=== PATIENT | female | born 2000 | race Hispanic/Latino ===

== ENCOUNTER 2023-03-12 10:31 | Emergency (ER) | payer OTHER ==
--- OUTSIDE RECORDS SUMMARY | 2023-03-12 10:38 | XMS REPORT | Continuity of Care Document ---
:2000 Author Organization [facility] t Address [address] [facility] [address] [place] [address] Care Team Providers Name Role Phone JOSÉ LUIS GONZALEZ Primary Care Physician Unavailable JOSÉ LUIS GONZALEZ Attending Clinician Unavailable José Luis Gonzalez MD Attending Clinician Doctor Unassigned, [place] Attending Clinician Unavailable Chino Hill MD Attending Clinician Deshawn Sherman CRNA Attending Clinician Only, Adc Test Attending Clinician Unavailable Chapo Roman MD Attending Clinician 2, Adc Lab Attending Clinician Unavailable Ultrasound, Adc Mfm Attending Clinician Unavailable Azalea Figueroa MD Attending Clinician Merissa Perez PA-C Attending Clinician MERISSA PEREZ Attending Clinician Unavailable Vern PAZ, Ervin Hernandes Attending Clinician Melvin Hurst DO Attending Clinician Ultrasound, Ang-Mfm Attending Clinician Unavailable Naomi Coulter MD, [place] Attending Clinician [phone] Pob, Adc Lab Main Attending Clinician Unavailable , Adc Lab Attending Clinician Unavailable Mahnaz Light Attending Clinician Fay Krishna DO Attending Clinician Lab, Adc Fam Pob I Attending Clinician Unavailable Naida Lauren Attending Clinician NAIDA ENGLE Attending Clinician Unavailable JOSÉ LUIS GONZALEZ Admitting Clinician Unavailable José Luis Gonzalez MD Admitting Clinician Payers Payer Name Policy Type Policy Number Effective Date Expiration Date [facility] [id number] 2019 00:00:00 Problems Condition Condition Condition Status Onset Resolution Last Treating Co mments Source Name Details Category Date Date Treatment Clinician Date Encounter Encounter Disease Active Uni vers for well for well 2-07 ity of [place] exam [place] 00 Medical routine routine Branch gynecologi gynecologi shahriar exam shahriar exam Morbid Morbid Disease Active Univers obesity obesity 6-02 [place] of [place] mass index mass index 00 Me dical of 50 or of 50 or Branch higher higher Mild Mild Disease Active 2019-04 Univers intermitte intermitte 1-04 [place] y of nt asthma nt asthma [place] without without 00 Medical complicati complicati Br anch on on History of History of Disease Active 2019-04 Last U nivlynn 2019 2018 1-04 Assessmen ity of coronaviru coronaviru 00:00: t & Plan: [place] s disease s disease 00 Negar dias (COVID-19) (COVID-19) g of this Branch note might be different from the original. Positive on 11/29/2019 Allergies, Adverse Reactions, Alerts Allergy Allergy Status Severity Reaction(s) Onset Inactive Treating Comm ents Source Name Type Date Date Clinician NO KNOWN Drug Active Univers ALLERGIE Class ity of S [facility] Social History Social Habit Start Date Stop Date Quantity Comments Source ASSERTION [facility] Sexual [facility] Exposure to 2021 2021-05-25 Not sure [facility]-CoV-2 (event) 00:00:00 14:55:00 [facility] History of Social 2021-05-25 2021-05-25 Univers ity of function 00:00:00 00:00:00 [facility] Alcohol Comment 2021-05-25 2021-05-25 Social Universit y of 00:00:00 00:00:00 [facility] Alcohol intake 2020-03-19 2020-03-19 Ex-drinker [facility] 00:00:00 00:00:00 (finding) [facility] History SDOH 2020-02-14 2020-02-14 99 University o f Alcohol Frequency 00:00:00 00:00:00 [facility] edical Branch History SDOH 2020-02-14 2020-02-14 99 University o f Alcohol Std Drinks 00:00:00 00:00:00 [facility] History SDUT 2020-02-14 2020-02-14 99 University o f Alcohol Binge 00:00:00 00:00:00 [facility] al [place] Tobacco use and 2019-03-05 2019-03-05 Smokeless Universit y of exposure 00:00:00 00:00:00 [facility] [place] Sex Assigned At [birth year] Universit y of 00:00:00 00:00:00 [facility] Smoking Status Start Date Stop Date Source Never smoked tobacco [facility] Medications Ordered Filled Start Stop Current Ordering Indication Dosage Frequency Signature Comments Components Source Medication Medication Date Date Medication? Clinician (SIG) Name Name multivit, Yes Take by Uni vers x,calcium,i 2-07 mouth. ity of ,mins 15:26: [place] (MULTIVITAM 03 Medical IN AND Branch MINERAL ORAL) multivit, Yes Take by Uni vers x,calcium,i 2-07 mouth. ity of ,mins 15:26: [place] (MULTIVITAM 03 Medical IN AND Branch MINERAL ORAL) norelgestro Yes [id number] 1{patch Apply 1 Univers min-ethinyl 2-07 } Patch to ity of estradiol 00:00: skin [place] 150-35 00 weekly. Medical mcg/24 hr Branch patch norelgestro Yes [id number] 1{patch Apply 1 Univers min-ethinyl 2-07 } Patch to ity of estradiol 00:00: skin [place] 150-35 00 weekly. Medical mcg/24 hr Branch patch norgestimat 2021- No [id number] 1{tbl} Take 1 Univers e-ethinyl 6-23 02-07 tablet by ity of estradioL 00:00: 00:00 mouth [place] 0.25-35 00 :00 daily. Medical mg-mcg per Branch tablet norgestimat 2021- No [id number] 1{tbl} Take 1 Univers e-ethinyl 6-23 02-07 tablet by ity of estradioL 00:00: 00:00 mouth [place] 0.25-35 00 :00 daily. Medical mg-mcg per Branch tablet 2021- No [id number] 1{tbl} Take 1 Univers vitamin 6-03 02-07 tablet by ity of w/FA tablet 00:00: 00:[place] 00 :00 daily. Medical Branch ferrous 2021- No [id number] 325mg Take 1 Un dada sulfate 325 -06 17-07 tablet by it y of mg (65 mg 00:00: 00:00 mouth 2 [place] iron) 00 :00 (two) Medical tablet times Branch daily. ibuprofen 2021- No [id number] 600mg Take 1 Univers 600 mg 6- 02-07 tablet by ity of tablet 00:00: 00:00 mouth [place] 00 :00 every 6 Medical (six) Branch hours as needed (Pain). Take with food or milk. 2021- No [id number] 1{tbl} Take 1 Univers vitamin 6-03 02-07 tablet by ity of w/FA tablet 00:00: 00:[place] :00 daily. Medical Branch ferrous 2021- No [id number] 325mg Take 1 Un dada sulfate 325 -06 17-07 tablet by it y of mg (65 mg 00:00: 00:00 mouth 2 [place] iron) 00 :00 (two) Medical tablet times Branch daily. ibuprofen 2021- No [id number] 600mg Take 1 Univers 600 mg 09-18 tablet by ity of tablet 00:00: 00:00 mouth [place] 00 :00 every 6 Medical (six) Branch hours as needed (Pain). Take with food or milk. PNV 2019-04- No [id number] Take 1 Univers 102-iron-fo 04-21 TAB-CAP/M2 i ty of late-dha 00:00: 00:00 [place] (VITAFOL FE 00 :00 daily. Medica l PLUS) 90 mg Branch iron- 1 mg-200 mg Cap cetirizine 2018-04- No Univer s 10 mg 04-23 ity of tablet 00:00: 00:00 [place] 00 :00 Medical Branch cetirizine 2018-04- No Univer s 10 mg 04-23 ity of tablet 00:00: 00:00 [place] 00 :00 Medical Branch cetirizine 2018-04- No Univer s 10 mg 04-23 ity of tablet 00:00: 00:00 [place] 00 :00 [facility] Immunizations Ordered Immunization Filled Date Status Comments Sour ce Name Immunization Name Influenza Virus 2021-05-25 Completed Universit y of Vaccine Quad IM, 00:00:00 [facility] dical Preserv and ABX Free Bran ch 6 MO-64 YRS Influenza Virus 2021-05-25 Completed Universit y of Vaccine Quad IM, 00:00:00 [facility] dical Preserv and ABX Free Bran ch 6 MO-64 YRS TDAP 2020-07-09 Completed [facility] 00:00:00 [facility] TDAP 2020-07-09 Completed [facility] 00:00:00 [facility] Influenza Virus 2020-02-20 Completed Universit y of Vaccine Quad .5 mL 00:00:00 [place] [facility] IM 6+ MO Branch Influenza Virus 2020-02-20 Completed Universit y of Vaccine Quad .5 mL 00:00:00 [facility] IM 6+ MO Branch Influenza Virus Unknown Completed Universit y of Vaccine Quad .5 mL [facility] IM 6+ MO Branch (FLUZONE/FLULAVAL/FL UARIX) DTaP, Unspecified Unknown Completed Univers ity of Formulation [facility] DTaP, Unspecified Unknown Completed Univers ity of Formulation [facility] DTaP, Unspecified Unknown Completed Univers ity of Formulation [facility] DTaP, Unspecified Unknown Completed Univers ity of Formulation [facility] DTaP, Unspecified Unknown Completed Univers ity of Formulation [facility] Influenza Virus Unknown Completed Universit y of Vaccine - Whole [facility] Influenza Virus Unknown Completed Universit y of Vaccine - Whole [facility] HEPATITIS A Unknown Completed [facility] HEPATITIS A Unknown Completed [facility] Hep B, Adol or Pedi Unknown Completed Unive rsity of Dosage [facility] Hep B, Adol or Pedi Unknown Completed Unive rsity of Dosage [facility] Hep B, Adol or Pedi Unknown Completed Unive rsity of Dosage [facility] HIB 4 Dose Schedule Unknown Completed [facility] 4 Dose Schedule [facility] Dose [facility] Unknown [facility] 4 Dose Schedule Unknown [facility] HPV Unknown Completed [facility] HPV Unknown Completed [facility] HPV Unknown Completed [facility] Meningococcal Unknown Completed [facility] (groups A, C, Y and Branc h W-135) conjugate vaccine (MCV4P) MMR Unknown Completed [facility] MMR Unknown Completed [facility] Pneumococcal 7 Unknown Completed [facility] Conjugate, PCV7 [facility] (Prevnar7) [place] Pneumococcal 7 Unknown Completed [facility] Conjugate, PCV7 [facility] (Prevnar7) [place] IPV Unknown Completed [facility] IPV Unknown Completed [facility] IPV Unknown Completed [facility] IPV Unknown Completed [facility] TDAP Unknown Completed [facility] Varicella Unknown Completed [facility] (varivax)(chicken [place] M edical pox) Branch Varicella Unknown Completed [facility] (varivax)(chicken [place] M edical pox) Branch Influenza Virus Unknown Completed Universit y of Vaccine Quad .5 mL [facility] [place] [facility] 6+ MO Branch (FLUZONE/FLULAVAL/FL UARIX) DTaP, Unspecified Unknown Completed Univers ity of Formulation [facility] DTaP, Unspecified Unknown Completed Univers ity of Formulation [facility] DTaP, Unspecified Unknown Completed Univers ity of Formulation [facility] DTaP, Unspecified Unknown Completed Univers ity of Formulation [facility] DTaP, Unspecified Unknown Completed Univers ity of Formulation [facility] Influenza Virus Unknown Completed Universit y of Vaccine - Whole [facility] Branch Influenza Virus Unknown Completed Universit y of Vaccine - Whole [facility] HEPATITIS A Unknown Completed [facility] HEPATITIS A Unknown Completed [facility] Hep B, Adol or Pedi Unknown Completed Unive rsity of Dosage [facility] Hep B, Adol or Pedi Unknown Completed Unive rsity of Dosage [facility] Hep B, Adol or Pedi Unknown Completed Unive rsity of Dosage [facility] HIB 4 Dose Schedule Unknown Com[facility] 4 Dose Schedule Unknown Com[facility] HIB 4 Dose Schedule Unknown Com[facility] HIB 4 Dose Schedule Unknown Completed Unive [facility] HPV Unknown Completed [facility] HPV Unknown Completed [facility] HPV Unknown Completed [facility] Meningococcal Unknown Completed [facility] (groups A, C, Y and Branc h W-135) conjugate vaccine (MCV4P) MMR Unknown Completed [facility] MMR Unknown Completed [facility] Pneumococcal 7 Unknown Completed [facility] Conjugate, PCV7 [facility] (Prevnar7) Branch Pneumococcal 7 Unknown Completed [facility] Conjugate, PCV7 [facility] (Prevnar7) Branch IPV Unknown Completed [facility] IPV Unknown Completed [facility] IPV Unknown Completed [facility] IPV Unknown Completed [facility] TDAP Unknown Completed [facility] Varicella Unknown Completed University (varivax)(chicken [place] M edical pox) Branch Varicella Unknown Completed University (varivax)(chicken [place] M edical pox) Branch Influenza Virus Unknown Completed Universit y of Vaccine Quad .5 mL [facility] [place] [facility] 6+ MO Branch (FLUZONE/FLULAVAL/FL UARIX) DTaP, Unspecified Unknown Completed Univers ity of Formulation [facility] DTaP, Unspecified Unknown Completed Univers ity of Formulation [facility] DTaP, Unspecified Unknown Completed Univers ity of Formulation [facility] DTaP, Unspecified Unknown Completed Univers ity of Formulation [facility] DTaP, Unspecified Unknown Completed Univers ity of Formulation [facility] Influenza Virus Unknown Completed Universit y of Vaccine - Whole [facility] Influenza Virus Unknown Completed Universit y of Vaccine - Whole [facility] HEPATITIS A Unknown Completed [facility] HEPATITIS A Unknown Completed [facility] Hep B, Adol or Pedi Unknown Completed Unive rsity of Dosage [facility] Hep B, Adol or Pedi Unknown Completed Unive rsity of Dosage [facility] Hep B, Adol or Pedi Unknown Completed Unive rsity of Dosage [facility] HIB 4 Dose Schedule Unknown Com[facility]IB 4 Dose Schedule Unknown Completed [facility] HIB 4 Dose Schedule Unknown Com[facility] HIB 4 Dose Schedule Unknown Completed [facility] HPV Unknown Completed [facility] HPV Unknown Completed [facility] HPV Unknown Completed [facility] Meningococcal Unknown Completed [facility] (groups A, C, Y and Branc h W-135) conjugate vaccine (MCV4P) MMR Unknown Completed [facility] MMR Unknown Completed [facility] Pneumococcal 7 Unknown Completed [facility] Conjugate, PCV7 [facility] (Prevnar7) Branch Pneumococcal 7 Unknown Completed [facility] Conjugate, PCV7 [facility] (Prevnar7) [place] IPV Unknown Completed [facility] IPV Unknown Completed [facility] IPV Unknown Completed [facility] IPV Unknown Completed [facility] TDAP Unknown Completed [facility] Varicella Unknown Completed [facility] (varivax)(chicken [place] M edical pox) Branch Varicella Unknown Completed [facility] (varivax)(chicken [place] M edical pox) [place] Vital Signs Vital Name Observation Time Observation Value Comments Source Systolic blood 2021-05-25 21:13:00 113 mm[Hg] Univer sity of pressure [facility] Diastolic blood 2021-05-25 21:13:00 73 [facility]Hg[facility] 2021-05-25 21:13:00 84 /min [facility] Body temperature 2021-05-25 21:13:00 36.67 [facility] Respiratory rate 2021-05-25 21:13:00 18 /min [facility] Body height 2021-05-25 21:13:00 160 cm [facility] Body weight 2021-05-25 21:13:00 149.233 kg [facility] BMI 2021-05-25 21:13:00 58.28 kg/m2 [facility] Procedures Procedure Date / Time Performed Performing Clinician Sourc e FLU VACC (), 2021-05-25 22:06:03 José Luis Gonzalez [facility] 2-64 YRS, .5ML, IM, Medical Bran ch QUAD (FLUCELVAX) Encounters Start End Encounter Admission Attending Care Care Encounter Source Date/Time Date/Time Type Type Clinicians Facility Department ID 2021-02-15 [facility] [id number] Univers 21:27:29 ity [facility] 2021-02-14 Emergency [facility] [id number] Univers 08:01:03 ity [facility] 2021-02-13 Emergency [facility] [id number] [facility]:28[facility] 2023-01-05 Outpatient JOSÉ LUIS GAMA [facility] [id number] Univers 09:30:00 [facility]30[facility]22-07-22 2022-07-22 Outpatient JOSÉ LUIS GAMA [facility] [id number] Univers 10:30:00 10:30:[facility] 2022-05-25 2022-05-25 Outpatient JOSÉ LUIS GAMA [facility] [id number] Univers 13:30:00 [facility]:30:[facility] 2021-05-25 2021-05-25 Outpatient JOSÉ LUIS GAMA [facility] [id number] Univers 15:00:00 16:13:58 [facility] 2021-05-25 2021-05-25 Office José Luis Gonzalez [facility] [id number] Univers 15:00:00 16:13:58 Visit Efrain ZENG [id number] i ty [facility] [id number] Christy sage PROFESSIO [phone] Mt dical [address] 2021-05-25 2021-05-25 Outpatient R [facility] [id number] Univers 15:00:00 15:00:00 ity of [facility] 2021-05-25 2021-05-25 Orders Doctor GABRIELLA [id number] Univers 00:00:00 00:00:00 Only Unassigned, NELLIE [id number] ity of [place] [facility] [id number] Todd as [phone] [address] 2021-04-09 2021-04-09 Outpatient R [facility] [id number] Univers 10:30:00 10:30:00 ity of [facility] 2020-10-08 2020-10-08 [facility] [id number] Univers 10:56:32 12:03:44 Cam Acme [id number] ity of [id number] [facility] [phone] Mt dical [address] 2020-10-08 2020-10-08 Outpatient R [facility] [id number] Univers 11:00:00 11:00:00 ity of [facility] 2020-10-08 2020-10-08 Orders Doctor GABRIELLA [id number] Univers 00:00:00 00:00:00 Only Unassigned, NELLIE [id number] ity of [place] [facility] [id number] [place] as [phone] [address] 2020-09-17 2020-09-19 Hospital Carlos [facility] [id number] Univers 10:57:00 11:35:00 Encounter Cam Karri [id number] ity of [place] [id number] [place] [phone] [facility] 083 [place] 2020-09-17 2020-09-18 [facility] [id number] Univers 22:42:00 07:16:00 Event Chino Sage [place] [id number] ity of [place] [id number] [place] [phone] [facility] 083 Branch 2020-09-17 2020-09-[address] [facility] [id number] Univers 16:19:30 16:19:30 Event Deshawn [place] [id number] i ty of [place] [id number] [place] [phone] [facility] 083 Branch 2020-09-12 2020-09-12 Laboratory Only, Adc Test [facility] 1.2.840. [id number] Univers 11:48:44 12:03:44 Only Abel Chapo [place] [id number] ity of [place] [id number] [place] [phone] [facility] 353 [place] 2020-09-12 2020-09-12 Outpatient R [facility] [id number] Univers 11:30:00 11:30:00 ity of [facility] 2020-09-10 2020-09-10 Outpatient R JOSÉ LUIS GONZALEZ [facility] [id number] Univers 11:30:00 11:30:00 ity of [facility] 2020-09-10 2020-09-10 Routine José Luis Gonzalez [facility] [id number] Univers 10:39:24 11:19:00 Efrain Zeng [id number] ity of [place] [id number] [phone] Mt dical nal [address] [facility] 2020-09-10 2020-09-10 Stereo Equipment Installer 2, Adc Lab [facility] 1.2.840.114 [id number] Univers 10:31:24 10:46:24 Visit José Luis Gonzalez [id number] ity of [place] [id number] [place] Profess[place] [phone] Mt dical nal [address] [facility] 2020-09-05 2020-09-05 Stereo Equipment Installer Ultrasound, Adc [facility] 1.2 .840.114 [id number] Univers 09:38:15 10:07:36 Visit FigueroaAzalea Karri [id number] ity of [place] [id number] [place] Profess[place] [phone] [address] 2020-09-05 2020-09-05 Outpatient R [facility] [id number] Univers 09:30:00 09:30:00 ity of [facility] 2020-09-04 2020-09-04 Routine José Luis Gonzalez [facility] 1.2.840.114 [id number] Univers 11:34:51 12:23:19 Merissa Perez [id number] ity of [place] [id number] [place] Profess[place] [phone] [address] 2020-09-04 2020-09-04 Outpatient R ANA [facility] [id number] Univers 11:30:00 11:30:00 MERISSA herrera [facility] 2020-09-04 2020-09-04 Orders Doctor GABRIELLA 1.2.840.114 [id number] Univers 00:00:00 00:00:00 Only Unassigned, NELLIE [id number] ity of [place] [facility] [id number] [place] as [phone] [address] 2020-08-26 2020-08-26 Telephone Carlos Jsoé Luis [facility] 1.2.840.114 [id number] Univers 00:00:00 00:00:00 Efrain Zeng [id number] i ty of [place] [id number] [place] Profess[place] [phone] [address] 2020-08-21 2020-08-21 Outpatient R ANA [facility] [id number] Univers 11:30:00 11:30:00 MERISSA herrera [facility] 2020-08-21 2020-08-21 Routine Ana [facility] [id number] Univers 07:49:22 08:04:22 Merissa Zeng [id number] ity of [place] [id number] [place] Profess[place] [phone] [address] 2020-08-21 2020-08-21 Outpatient R ANA [facility] [id number] Univers 08:00:00 08:00:00 [facility] 2020-08-20 2020-08-20 Outpatient R ANA [facility] [id number] Univers 11:30:00 11:30:00 [facility] 2020-08-20 2020-08-20 Outpatient R ANA [facility] [id number] Univers 10:45:00 10:45:00 [facility] 2020-08-05 2020-08-05 Routine José Luis Gonzalez [facility] [id number] Univers 13:19:31 14:19:54 Efrain Zeng [id number] ity of Visit [place] [id number] [place] Profess[place] [phone] [address] 2020-08-05 2020-08-05 Outpatient R JOSÉ LUIS GONZALEZ [facility] [id number] Univers 13:30:00 13:30:00 ity [facility] 2020-08-04 2020-08-04 Outpatient R JOSÉ LUIS GONZALEZ [facility] [id number] Univers 11:15:00 11:15:00 ity [facility] 2020-08-01 2020-08-01 Stereo Equipment Installer Ultrasound, [facility] 1.2 .840.114 [id number] Univers 08:09:44 08:39:44 Visit Ervin Porras 350.1.13.10 [place] [phone] [address] 2020-08-01 2020-08-01 Outpatient P [facility] [id number] Univers 08:00:00 08:00:00 ity [facility] 2020-07-23 2020-07-23 Routine Ana [facility] 1.2.242.844 [id number] Univers 10:00:37 10:32:27 Merissa Karri 350.1.13.10 it[place] [phone] Mt dical nal [address] [facility] 2020-07-23 2020-07-23 Outpatient R ANA [facility] [id number] Univers 09:45:00 09:45:00 MERISSA ity of [facility] 2020-07-09 2020-07-09 Routine José Luis Gonzalez [facility] 1.2.721.674 [id number] Univers 10:57:42 12:10:47 Efrain Zeng 350.1.13.10 it[place] [phone] Mt dical nal [address] [facility] 2020-07-09 2020-07-09 Stereo Equipment Installer 2, Adc Lab [facility] 1.2.840.114 [id number] Univers 09:48:23 10:03:23 Visit José Luis Gonzalez 350.1.13.10 [place] [phone] Mt dical nal [address] [facility] 2020-07-09 2020-07-09 Outpatient R JOSÉ LUIS GONZALEZ [facility] [id number] Univers 09:45:00 09:45:00 ity of [facility] 2020-07-09 2020-07-09 Case Ana [facility] 1.2.367.460 [id number] Univers 00:00:00 00:00:00 Management Merissa Zeng 350.1.13.10 [place] [phone] Mt dical nal [address] [facility] 2020-07-08 2020-07-08 Patient Aris [facility] 1.2.840.114 [id number] Univers 00:00:00 00:00:00 Outreach Melvin PRIMARY 350.1.13.10 i ty of [facility] [place] [phone] Mt dical [address] 2020-06-13 2020-06-13 Stereo Equipment Installer Ultrasound, [facility] 1.2 .840.114 [id number] Univers 14:49:25 15:19:25 Visit CarlosJosé Luis Efrain Zeng 350.1.13.10 ity of [place] 4.2.7.2.686 [place] Professio [phone] [address] 2020-06-13 2020-06-13 Outpatient P [facility] [id number] Univers 15:00:00 15:00:00 ity [facility] 2020-06-11 2020-06-11 Outpatient R ANA, [facility] [id number] Univers 11:00:00 11:00:00 [facility]-11 2020-06-11 [facility] 1.2.333.631 [id number] 10:30:58 10:45:58 Merissa Zeng 350.1.13.10 Visit Andrzej 4.2.7.2.686 Professio [phone] [address] 2020-06-11 2020-06-11 Routine Ana [facility] 1.2.859.200 [id number] Univers 10:30:58 10:45:58 Merissa Zeng 350.1.13.10 ity of [place] [phone] [address] 2020-06-11 2020-06-11 Patient Doctor [facility] 1.2.840.114 [id number] Univers 00:00:00 00:00:00 Secure Msg Unassigned, KARRI 350.1.13.10 ity of [place] [phone] [address] 2020-05-16 2020-05-16 Stereo Equipment Installer Ultrasound, [facility] 1.2.840.114 [id number] 13:06:23 14:06:23 [facility] NETWORK SYSTEMS ADMINISTRATOR 350.1.13.10 [facility] 4.2.7.2.686 MATERNAL [phone] & CHILD [address] [place] [address] 2020-05-16 2020-05-16 Stereo Equipment Installer Felipa, Lupe [facility] 1.2 .840.114 [id number] Univers 13:06:23 14:06:23 Visit Lacy Chand NETWORK SYSTEMS ADMINISTRATOR 350.1. 13.10 ity of REGIONAL 4.2.7.2.686 [place] as MATERNAL [phone] Med ical & CHILD [address] [place] [address] 2020-05-16 2020-05-16 Outpatient P [facility] [id number] Univers 13:00:00 13:00:00 ity of [facility] 2020-05-14 2020-05-14 Routine José Luis Gonzalez [facility] 1.2.928.096 [id number] 10:39:22 11:46:13 Cam [place] 350.1.13.10 Visit Andrzej 4.2.7.2.686 Professio [phone] [address] 2020-05-14 2020-05-14 Routine José Luis Gonzalez [facility] 1.2.281.444 [id number] Univers 10:39:22 11:46:13 Cam [place] 350.1.13.10 ity of [place] [phone] Mt dical [address] 2020-05-14 2020-05-14 Outpatient R JOSÉ LUIS GONZALEZ [facility] [id number] Univers 11:00:00 11:00:00 ity of [facility] 2020-04-21 2020-04-21 Patient Doctor [facility] 1.2.840.114 [id number] Univers 00:00:00 00:00:00 Secure Msg Unassigned, [place] 350.1.13.10 ity of [place] [phone] Mt dical [address] 2020-04-16 2020-04-16 Stereo Equipment Installer Heron Melchor [facility] 1.2.840.114 [id number] 12:27:50 12:42:50 Visit Lab Main [place] 350.1.13.10 [place] 4.2.7.2.686 Professio [phone] [address] 2020-04-16 2020-04-16 Stereo Equipment Installer Heron Melchor Lab Main [facility] 1.2.8 40.114 [id number] Univers 12:27:50 12:42:50 Visit Merissa Perez 350.1.13.10 it[place] of [place] [phone] Mt dic[address] 2020-04-16 2020-04-16 [facility]ine [facility] 1.2.721.939 [id number] Univers 11:00:14 11:15:14 Merissa Zeng 350.1.13.10 ity of [place] [phone] [address] 2020-04-16 2020-04-16 Routine [facility] 1.2.031.572 [id number] 11:00:14 11:15:14 Merissa Zeng 350.1.13.10 Visit [place] 4.2.7.2.686 Professio [phone] [address] 2020-04-16 2020-04-16 Outpatient R ANA [facility] [id number] Univers 10:45:00 10:45:00 MERISSA herrera [facility] 2020-04-16 2020-04-16 Orders Doctor QUIROZ 1.2.840.114 [id number] Univers 00:00:00 00:00:00 Only Unassigned, NELLIE 350.1.13.10 ity of [place] [facility] 4.2.7.2.686 [place] as [phone] [address] 2020-04-16 2020-04-16 Orders Doctor QUIROZ 1.2.840.114 [id number] 00:00:00 00:00:00 Only Unassigned, NELLIE 350.1.13.10 [place] [facility] 4.2.7.2.686 [phone] 009 2020-03-31 2020-03-31 Telephone José Luis Gonzalez [facility] 1.2.840.114 [id number] Univers 00:00:00 00:00:00 Cam [place] 350.1.13.10 i ty of [place] [phone] Mt dical nal [address] [place] [address] 2020-03-31 2020-03-31 Telephone José Luis Gonzalez [facility] 1.2.840.114 [id number] Univers 00:00:00 00:00:00 Cam [place] 350.1.13.10 i ty [place] [phone] Mt dical nal [address] [place] [address] 2020-03-31 2020-03-31 Telephone José Luis Gonzalez [facility] 1.2.840.114 [id number] 00:00:00 00:00:00 Cam [place] 350.1.13.10 [place] 4.2.7.2.686 Professio [phone] [address] 2020-03-31 2020-03-31 Telephone José Luis Gonzalez [facility] 1.2.840.114 [id number] 00:00:00 00:00:00 Cam [place] 350.1.13.10 [place] 4.2.7.2.686 Professio [phone] [address] 2020-03-28 2020-03-28 Patient José Luis Gonzalez [facility] 1.2.807.926 [id number] Univers 00:00:00 00:00:00 Secure Msg Cam [place] 350.1.13.10 ity of [place].2.[place] [phone] Mt dical NAL [address] [place] [address] 2020-03-27 2020-03-27 Telephone José Luis Gonzalez [facility] 1.2.840.114 [id number] 00:00:00 00:00:00 Cam [place] 350.1.13.10 [place] 4.2.7.2.686 Professio [phone] [address] 2020-03-27 2020-03-27 Telephone José Luis Gonzalez [facility] 1.2.840.114 [id number] Univers 00:00:00 00:00:00 Cam [place] 350.1.13.10 i ty [place] [phone] Mt dical [address] 2020-03-19 2020-03-19 Stereo Equipment Installer 2, Adc Lab [facility] 1.2.840.114 [id number] [facility] 13:24:45 13:39:45 Visit José Luis Gonzalezton 350.1.13.10 it[place] of [place] [phone] [address] 2020-03-19 2020-03-19 Stereo Equipment Installer 2, Adc Lab [facility] 1.2.840.114 [id number] 13:24:45 13:39:45 Visit [place] 350.1.13.10 [place] 4.2.7.2.686 Professio [phone] [address] 2020-03-19 2020-03-19 Stereo Equipment Installer 1, Adc Lab [facility] 1.2.840.114 [id number] [facility] 11:45:45 12:00:45 Visit José Luis Gonzalezton 350.1.13.10 it[place] of [place].2.[place] [phone] [address] 2020-03-19 2020-03-19 Stereo Equipment Installer 1, Adc Lab [facility] 1.2.840.114 [id number] 11:45:45 12:00:45 Visit [place] 350.1.13.10 [place] 4.2.7.2.686 [place] [phone] [facility] 2020-03-19 2020-03-19 Routine Carlos José Luis [facility] 1.2.502.543 [id number] [facility] 10:57:59 11:37:38 Cam [place] 350.1.13.10 ity of [place]2.[place] [phone] [address] 2020-03-19 2020-03-19 Routine Carlos José Luis [facility] 1.2.858.966 [id number] 10:57:59 11:37:38 Cam [place] 350.1.13.10 Visit [place] 4.2.7.2.686 Professio [phone] [address] 2020-03-19 2020-03-19 Outpatient R JOSÉ LUIS GONZALEZ [facility] [id number] Univers 11:00:00 11:00:00 ity [facility] 2020-03-15 2020-03-15 Emergency Dsouza, [facility] 1.2.840.114 [id number] Univers 20:28:00 22:49:00 Mahnaz Zeng 350.1.13.10 i ty of [place] [phone] [address] 2020-03-15 2020-03-15 Emergency Dsouza, [facility] 1.2.840.114 [id number] 20:28:00 22:49:00 Mahnazveronica Zeng 350.1.13.10 [place] 4.2.7.2.686 [place] [phone] [facility] 2020-03-05 2020-03-05 Outpatient R ANA [facility] [id number] Univers 08:30:00 08:30:00 [facility] 2020-02-28 2020-02-28 Outpatient R JOSÉ LUIS GONZALEZ [facility] [id number] Univers 11:15:00 11:15:00 ity of [facility] 2020-02-25 2020-02-25 Case [facility] 1.2.175.385 [id number] Univers 00:00:00 00:00:00 Management Merissa Zeng 350.1.13.10 [place] [phone] Mt dical [address] 2020-02-25 2020-02-25 Case Ana [facility] 1.2.524.570 [id number] 00:00:00 00:00:00 Management Merissa Zeng 350.1.13.10 [place] 4.2.7.2.686 Professio [phone] [address] 2020-02-20 2020-02-20 José Luis Kiran [facility] 1.2.092.694 [id number] Univers 09:01:41 09:51:03 Efrain Zeng 350.1.13.10 ity of [place] [phone] Mt dical [address] 2020-02-20 2020-02-20 Initial José Luis Gonzalez [place] 1.2.777.433 [id number] 09:01:41 09:51:03 Efrain Karri 350.1.13.10 Visit [place] 4.2.7.2.686 Professio [phone] [address] 2020-02-20 2020-02-20 Outpatient R [facility] [id number] Univers 09:30:00 09:30:00 ity of [facility] 2020-02-20 2020-02-20 Stereo Equipment Installer 2, Adc Lab [facility] 1.2.840.114 [id number] Univers 08:54:27 09:09:27 Visit José Luis Gonzalez Karri 350.1.13.10 it[place] of [place] [phone] Mt dic[address] 2020-02-20 2020-02-20 Stereo Equipment Installer 2, Adc Lab [facility] 1.2.840.114 [id number] 08:54:27 09:09:27 Visit Karri 350.1.13.10 [place] 4.2.7.2.686 Professio [phone] [address] 2020-02-20 2020-02-20 Orders Doctor GABRIELLA 1.2.840.114 [id number] Univers 00:00:00 00:00:00 Only Unassigned, NELLIE 350.1.13.10 ity of [place] [facility] 4.2.7.2.686 [place] as [phone] [address] 2020-02-20 2020-02-20 Orders Doctor GABRIELLA 1.2.840.114 [id number] 00:00:00 00:00:00 Only Unassigned, NELLIE 350.1.13.10 [place] [facility] 4.2.7.2.686 [phone] [facility] 2020-02-18 2020-02-18 Stereo Equipment Installer 2, Adc Lab [facility] 1.2.840.114 [id number] Univers 09:45:01 10:00:01 Visit José Luis Gonzalezton 350.1.13.10 ity of [place] [phone] Mt dic[address] 2020-02-18 2020-02-18 Stereo Equipment Installer 2, Adc Lab [facility] 1.2.840.114 [id number] 09:45:01 10:00:01 Visit [place] 350.1.13.10 [place] 4.2.7.2.686 Professio [phone] [address] 2020-02-18 2020-02-18 Outpatient R [facility] [id number] Univers 09:30:00 09:30:00 ity [facility] 2020-02-15 2020-02-15 Stereo Equipment Installer 2, Adc Lab [facility] 1.2.840.114 [id number] Univers 13:11:11 13:26:11 Visit Merissa Perez 350.1.13.10 it[place] of [place] [phone] [address] 2020-02-15 2020-02-15 Stereo Equipment Installer 2, Adc Lab [facility] 1.2.840.114 [id number] 13:11:11 13:26:11 Visit [place] 350.1.13.10 [place] 4.2.7.2.686 Professio [phone] [address] 2020-02-15 2020-02-15 Outpatient R [facility] [id number] Univers 13:00:00 13:00:00 ity [facility] 2020-02-15 2020-02-15 Outpatient R [facility] [id number] Univers 09:30:00 09:30:00 ity [facility] 2020-02-14 2020-02-14 Initial Ana [facility] 1.2.226.762 [id number] Univers 09:00:19 09:30:19 Merissa Zeng 350.1.13.10 ity of [place] [phone] [address] 2020-02-14 2020-02-14 Outpatient R ANA [facility] [id number] Univers 09:15:00 09:15:00 MERISSA itshannan [facility] 2020-01-01 2020-01-01 [facility] [id number] Univers 08:00:00 08:00:00 MERISSA ity [facility] 2019-12-05 2019-12-05 Emergency Tomi, [facility] 1.2.840.114 [id number] Univers 18:18:00 19:45:00 Fay Zeng 350.1.13.10 ity of [place].7.2.[place] [phone] [facility] [address] 2019-12-05 2019-12-05 Orders Doctor GABRIELLA 1.2.840.114 [id number] Univers 00:00:00 00:00:00 Only Unassigned, NELLIE 350.1.13.10 ity of [place] [facility] 4.2.7.2.686 [place] as [phone] [facility] [address]9 [address] 2019-11-29 2019-11-29 Laboratory Lab, Adc Fam Pob I [facility] 1.2. 840.114 [id number] Univers 08:16:37 08:36:37 Only Naida Engle 350.1.13.10 ity of [place] 4.2.7.2.686 [place] as Professio [phone] Mt dical [facility] [address] [employer] 2019-11-29 2019-11-29 Outpatient R QUIN [facility] [id number] Univers 08:20:00 08:20:00 NAIDA herrera [facility] 2019-11-14 2019-11-14 Refill Doctor [facility] 1.2.840.114 [id number] Univers 00:00:00 00:00:00 UnassignedKarri 350.1.13.10 ity of [place] [phone] Mt dical nal [address] [facility] 2019-10-16 2019-10-16 Refill Doctor [facility] 1.2.840.114 [id number] Univers 00:00:00 00:00:00 UnassignedKarri 350.1.13.10 ity of [place] [phone] Mt dical nal [address] [facility] 2019-10-02 2019-10-02 Patient Doctor [facility] 1.2.840.114 [id number] Univers 00:00:00 00:00:00 Secure Msg Unassigned, [place] 350.1.13.10 ity of [place] [phone] [address] 2019-10-01 2019-10-01 Office nAa NVOTTONIEL 1.2.039.403 [id number] Univers 14:25:04 15:00:58 Visit Merissa Zeng 350.1.13.10 i ty of [place]2.[place] [phone] [address] 2019-10-01 2019-10-01 Outpatient R ANA [facility] [id number] Univers 14:30:00 14:30:00 MERISSA shannan [facility] 2019-09-18 2019-09-18 Outpatient R ANA [facility] [id number] Univers 08:30:00 08:30:00 [facility]-08-[facility] 2019-08-29 Patient Doctor [facility] 1.2.840.114 [id number] Univers 00:00:00 00:00:00 Secure Msg Unassigned, [place] 350.1.13.10 ity [place] [phone] [address] 2019-07-20 2019-07-20 Patient Doctor [facility] 1.2.840.114 [id number] Univers 00:00:00 00:00:00 Secure Msg Unassigned, [place] 350.1.13.10 ity [place] [phone] [address] 2019-06-18 2019-06-18 Outpatient Luis Alberto PEREZ [facility] [id number] Univers 09:00:00 09:00:00 MERISSA [facility] 2019-06-18 2019-06-18 Office Ana [facility] 1.2.260.422 [id number] Univers 08:28:02 08:49:35 Visit Merissa Zeng 350.1.13.10 i ty of [place].2.[place] [phone] Mt dical [address] 2019-06-18 2019-06-18 Telephone [facility] 1.2.840.114 [id number] Univers 00:00:00 00:00:00 Merissa Zeng 350.1.13.10 i ty of [place].2.[place] [phone] Mt dical [address] 2019-06-18 2019-06-18 Orders Doctor GABRIELLA 1.2.840.114 [id number] Univers 00:00:00 00:00:00 Only Unassigned, NELLIE 350.1.13.10 ity of [place] [facility] 4.2.7.2.686 [place] as [phone] [address] 2019-05-23 2019-05-23 Telephone [facility] 1.2.840.114 [id number] Univers 00:00:00 00:00:00 Merissa Zeng 350.1.13.10 i ty [place] [phone] [address] Results This patient has no known results.
[2023-03-12 11:48] LABS: SARS-CoV-2 Antigen Rapid Res Negative (Negative)
--- NOTE | 2023-03-12 12:15 | ER ---
Nurse's Notes [facility] Name: Fay Lopez Age: 22 yrs Sex: Female : 2000 Arrival Date: 03/12/2023 Time: 10:31 Bed DIS9 Private MD: Sheryl Millan Diagnosis: Acute bronchitis due to respiratory syncytial virus Presentation: 03/12 10:42 Chief complaint: Patient states: Cough, congestion, body aches, SOB since 03/10. ll1 Coronavirus screen: Vaccine status: Patient reports being unvaccinated. Client denies travel out of the [place] in the last 14 days. congestion, cough unrelated to allergies, fatigue, fever, headache, muscle pain. Ebola Screen: Patient denies travel to an Ebola-affected area in the 21 days before illness onset. Initial Sepsis Screen: Does the patient meet any 2 criteria? No. Patient's initial sepsis screen is negative. Does the patient have a suspected source of infection? No. Patient's initial sepsis screen is negative. Risk Assessment: Do you want to hurt yourself or someone else? Patient reports no desire to harm self or others. Onset of symptoms was March 10, 2023. 10:42 Method Of Arrival: Ambulatory ll1 10:42 Acuity: PRESTON 4 ll1 Triage Assessment: 10:42 General: Appears in no apparent distress. Behavior is calm, cooperative, appropriate ll1 for age. General: Reports feeling ill for fatigue for. Pain: Denies pain. EENT: Reports nasal congestion. Neuro: Reports headache. Respiratory: Reports cough that is. 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 - Social history:: Smoking status: Reported history of juuling and/or vaping. Patient denies any tobacco usage or history of. Screenin:47 [facility] ED Fall Risk Assessment (Adult) Score/Fall Risk Level 0 - 2 = Low Risk ll1 Oriented to surroundings, Maintained a safe environment, Educated pt \T\ family on fall prevention, incl call for assistance when getting out of bed, Hourly rounding (assess needs \T\ fall precautionary measures) done. Abuse screen: Denies threats or abuse. Abuse screen: Denies threats or abuse. Nutritional screening: No deficits noted. Tuberculosis screening: No symptoms or risk factors identified. Assessment: 11:15 Reassessment: No changes from previously documented assessment. Patient and/or family ll1 updated on plan of care and expected duration. Pain level reassessed. Patient is alert, oriented x 3, equal unlabored respirations, skin warm/dry/pink. 12:25 Reassessment: No changes from previously documented assessment. Patient and/or family ll1 updated on plan of care and expected duration. Pain level reassessed. Vital Signs: 10:42 BP 141 / 91; Pulse 99; Resp 17; Temp 99.2; Pulse Ox 98% ; Weight 149.69 kg; Height 5 ll1 ft. 4 in. ; Pain 8/10; 10:42 Body Mass Index 56.65 (149.69 kg, 162.56 cm) ll1 10:42 Pain Scale: Adult ll1 ED Course: 10:36 Patient arrived in ED. as 10:36 Sheryl Millan is Private Physician. as 10:37 Sujata Farmer FNP-C is [facility]. snw 10:37 Gracie Magaña MD is Attending Physician. snw 10:43 Triage completed. ll1 10:44 Arm band placed on. ll1 11:00 Provided Education on: ER process and procedures. Cardiac monitoring not applicable on ll1 this patient. 11:14 SARS RAPID Sent. bc6 11:14 Flu Sent. bc6 11:38 Flu Sent. ll1 11:38 SARS RAPID Sent. ll1 11:47 Patient has correct armband on for positive identification. Bed in low position. Call 1 light in reach. 12:30 No provider procedures requiring assistance completed. Patient did not have IV access ll1 during this emergency room visit. Administered Medications: No medications were administered Medication: 11:48 VIS not applicable for this client. ll1 Outcome: 12:15 Discharge ordered by . snw 12:30 Patient left the ED. ll1 12:30 Discharged to home ambulatory, ll1 12:30 Condition: stable 12:30 Discharge instructions given to patient, Instructed on discharge instructions, follow up and referral plans. medication usage, Demonstrated understanding of instructions, follow-up care, medications, Prescriptions given X 2, Signatures: Sujata Farmer, NIKI-C FORM GRADER-Csnw Shari Laboy as Artur Paul RN RN ll1 Tahira Williamson 6 Corrections: (The following items were deleted from the chart) 10:44 10:42 Pulse 99bpm; Resp 17bpm; 149.69 kg; Height 5 ft. 4 in.; BMI: 56.6; Pain 11/25, ll1 Adult; ll1
--- NOTE | 2023-03-12 12:15 | EDPHYS ---
Physician Documentation [facility] Name: Fay Lopez Age: 22 yrs Sex: Female : 2000 Arrival Date: 03/12/2023 Time: 10:31 Bed DIS9 Private MD: Sheryl Millan ED Physician Gracie Magaña HPI: 03/12 11:58 This 22 yrs old Female presents to ER via Ambulatory with complaints of Flu snw Symptoms. 11:58 Onset: The symptoms/episode began/occurred acutely. Associated signs and symptoms: snw Pertinent positives: congestion, cough, sore throat. It is unknown whether or not the patient has had similar symptoms in the past. The patient has not recently seen a physician. 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 - Social history:: Smoking status: Reported history of juuling and/or vaping. Patient denies any tobacco usage or history of. ROS: 11:59 Constitutional: Negative for fever, chills, and weight loss, Eyes: Negative for injury, snw pain, redness, and discharge, ENT: Negative for injury and discharge, positive congestion and sore throat Neck: Negative for injury, pain, and swelling, Cardiovascular: Negative for chest pain, palpitations, and edema, Respiratory: Negative for shortness of breath, wheezing, and pleuritic chest pain, +cough Abdomen/GI: Negative for abdominal pain, nausea, vomiting, diarrhea, and constipation, Back: Negative for injury and pain, : Negative for injury, bleeding, discharge, and swelling, MS/Extremity: Negative for injury and deformity, Skin: Negative for injury, rash, and discoloration, Neuro: Negative for headache, weakness, numbness, tingling, and seizure, Psych: Negative for depression, anxiety, suicide ideation, homicidal ideation, and hallucinations, Exam: 11:57 Constitutional: This is a well developed, well nourished patient who is awake, alert, snw and in no acute distress. Head/Face: Normocephalic, atraumatic. Eyes: Pupils equal round and reactive to light, extra-ocular motions intact. Lids and lashes normal. Conjunctiva and sclera are non-icteric and not injected. Cornea within normal limits. Periorbital areas with no swelling, redness, or edema. ENT: Nares patent. Nasal discharge, no septal abnormalities noted. Tympanic membranes are normal and external auditory canals are clear. Oropharynx with no redness, swelling, or masses, exudates, or evidence of obstruction, uvula midline. Mucous membranes moist. Neck: Trachea midline, no thyromegaly or masses palpated, and no cervical lymphadenopathy. Supple, full range of motion without nuchal rigidity, or vertebral point tenderness. No Meningismus. Chest/axilla: Normal chest wall appearance and motion. Nontender with no deformity. No lesions are appreciated. Cardiovascular: Regular rate and rhythm with a normal S1 and S2. No gallops, murmurs, or rubs. Normal PMI, no JVD. No pulse deficits. Respiratory: Lungs have equal breath sounds bilaterally, clear to auscultation and percussion. No rales, rhonchi or wheezes noted. No increased work of breathing, no retractions or nasal flaring. Abdomen/GI: Soft, non-tender, with normal bowel sounds. No distension or tympany. No guarding or rebound. No evidence of tenderness throughout. Back: No spinal tenderness. No costovertebral tenderness. Full range of motion. Skin: Warm, dry with normal turgor. Normal color with no rashes, no lesions, and no evidence of cellulitis. MS/ Extremity: Pulses equal, no cyanosis. Neurovascular intact. Full, normal range of motion. Neuro: Awake and alert, GCS 15, oriented to person, place, time, and situation. Cranial nerves II-XII grossly intact. Motor strength 5/5 in all extremities. Sensory grossly intact. Cerebellar exam normal. Normal gait. Psych: Awake, alert, with orientation to person, place and time. Behavior, mood, and affect are within normal limits. Vital Signs: 10:42 BP 141 / 91; Pulse 99; Resp 17; Temp 99.2; Pulse Ox 98% ; Weight 149.69 kg; Height 5 ll1 ft. 4 in. ; Pain 8/10; 10:42 Body Mass Index 56.65 (149.69 kg, 162.56 cm) ll1 10:42 Pain Scale: Adult ll1 MDM: 10:37 Patient medically screened. snw 12:01 Differential diagnosis: viral Infection, bacterial infection. Data reviewed: vital snw signs, nurses notes. I considered the following discharge prescriptions or medication management in the emergency department. Counseling: I had a detailed discussion with the patient and/or guardian regarding the historical points, exam findings, and any diagnostic results supporting the discharge/admit diagnosis, radiology results, the need for outpatient follow up, for definitive care, to return to the emergency department if symptoms worsen or persist or if there are any questions or concerns that arise at home. Special discussion: Based on the history and exam findings, there is no indication for further emergent testing or inpatient evaluation. I discussed with the patient/guardian the need to see the primary care provider for further evaluation of the symptoms. 12:16 Response to treatment: There is no appreciated change of the patient's symptoms at this snw time. 03/12 10:57 Order name: Flu; Complete Time: 11:54 snw 03/12 10:57 Order name: SARS RAPID; Complete Time: 11:54 snw Administered Medications: No medications were administered Disposition Summary: 03/12/23 12:15 Discharge Ordered Notes: Location: Home snw Condition: Stable snw Diagnosis - Acute bronchitis due to respiratory syncytial virus snw Followup: snw - With: Emergency Department - When: As needed - Reason: Worsening of condition Followup: snw - With: Private Physician - When: 2 - 3 days - Reason: Recheck today's complaints, Continuance of care, Re-evaluation by your physician Discharge Instructions: - Discharge Summary Sheet snw - Acute Bronchitis, Adult snw - Respiratory Syncytial Virus Infection, Pediatric snw - Rehydration, Adult snw Forms: - Work release form snw - Medication Reconciliation Form snw - Thank You Letter snw - Antibiotic Education snw - Prescription Opioid Use snw - Patient Portal Instructions snw - Leadership Thank You Letter snw Prescriptions: - Pepcid 20 mg Oral Tablet - take 1 tablet ORAL route every 12 hours for 10 days; 20 tablet; Refills: 0, snw Product Selection Permitted - Zyrtec 10 mg Oral Tablet - take 1 tablet ORAL route once daily As needed; 20 tablet; Refills: 0, Product snw Selection Permitted Signatures: Dispatcher [employer] EDMS Sujata Farmer, EQUIPMENT OPERATOR [employer]-C EQUIPMENT OPERATOR [employer] Artur Paul, RN RN ll1
[2023-03-12 12:41] VITALS: BP 141/91; TEMP 99.2; O2SAT 98
== END 2023-03-12 12:30 | disposition home or self-care (01) ==
LOC: ER 10:31
DX: J20.5 Acute bronchitis due to respiratory syncytial virus (principal); Z11.52 Encounter for screening for COVID-19; Z28.310 Unvaccinated for COVID-19
CPT/HCPCS: 36415; 87804; 87811; 99283